=== PATIENT | male | born 1985 | race Two or more races ===

== ENCOUNTER 2019-11-06 10:05 | Emergency (ER) | payer SELFPAY ==
[~2019-11-06] VITALS: Ht 185.4 cm; Wt 160.0 kg
[2019-11-06 11:05] VITALS: BP 144/87
== END 2019-11-06 11:21 | disposition home or self-care (01) ==
LOC: ER 10:05
DX: R00.2 Palpitations (principal); F12.10 Cannabis abuse, uncomplicated; Z88.8 Allergy status to other drugs, medicaments and biological substances; Z91.018 Allergy to other foods; Z98.890 Other specified postprocedural states
CPT/HCPCS: 93005; 99283